=== PATIENT | female | born 1965 | race Asian ===

== ENCOUNTER 2023-12-07 10:53 | Emergency (ER) | payer MEDICAID ==
[~2023-12-07] VITALS: Ht 149.9 cm; Wt 63.8 kg
[~2023-12-07 10:53] MED LIST: ASPI81TA30 PO; ATEN50TA PO; ATOR10TA70 PO; FENO160T13 PO; FERR325T35 PO; HYDR-3965 PO; LORA10TA7 PO; LOSA100T58 PO; SERT100T PO; ZOLP5TAB8 PO; [UNRECOGNIZED DRUG - REMARK] EACHEYE
[2023-12-07 11:31] LABS: BASOPHILS # (AUTO) 0.1 X10'3 (0-0.2); BASOPHILS % (AUTO) 0.7 % (0-1); EOSINOPHILS % (AUTO) 0.4 % (0-6); HEMOGLOBIN 14.3 g/dl (12.0-16.0); LYMPHOCYTES # (AUTO) 2.6 X10'3 (1.1-4.8); MEAN CORPUSCULAR HEMOGLOBIN 28.9 PG (27.0-31.0); MEAN CORPUSCULAR HGB CONC 33.3 g/dL (33.0-36.5); MEAN CORPUSCULAR VOLUME 86.6 FL (78-98); MEAN PLATELET VOLUME 8.9 FL (7.4-10.4); MONOCYTES # (AUTO) 0.4 X10'3 (0-0.9); MONOCYTES % (AUTO) 3.6 % (2-12); NEUTROPHILS % (AUTO) 69.3 % (42-75); PLATELET COUNT 240 X10'3 (140-440); RED BLOOD COUNT 4.97 X10'6 (4.20-5.60); RED CELL DISTRIBUTION WIDTH 13.9 % (11.5-14.5); WHITE BLOOD COUNT 10.1 X10'3 (4.5-11.0)
[2023-12-07 11:47] LABS: ALBUMIN 3.8 G/DL (3.4-5.0); ANION GAP 12 (8-16); BLOOD UREA NITROGEN 17 MG/DL (7-18); BUN/CREATININE RATIO 16.5 (10.0-20.0); CALCIUM 9.3 MG/DL (8.5-10.1); CHLORIDE 101 MMOL/L (99-107); CREATININE 1.03 MG/DL (0.40-0.90); GLUCOSE 256 MG/DL (70-104); POTASSIUM 3.2 MMOL/L (3.5-5.1); PRO BRAIN NATRIURETIC PEPTIDE < 30 PG/ML (0-125); SODIUM 138 MMOL/L (135-145); TOTAL CARBON DIOXIDE 24.9 MMOL/L (24-32); eCRCL 41 ML/MIN; eGFR 55 ML/MIN
[2023-12-07] MEDS: normal saline 1000ml 1,000 ML IV ONE (13:00)
[2023-12-07] MEDS: potassium Cl 20 mEq SR tablet PO STA (13:00)
[2023-12-07 15:46] VITALS: BP 157/98; PULSE 73; RESP 16; TEMP 98.7; O2SAT 94
== END 2023-12-07 15:52 | disposition home or self-care (01) ==
LOC: ER 10:54
DX: E87.6 Hypokalemia (principal); E86.0 Dehydration; R55 Syncope and collapse; I10 Essential (primary) hypertension; E78.00 Pure hypercholesterolemia, unspecified; Z79.899 Other long term (current) drug therapy; Z79.2 Long term (current) use of antibiotics
CPT/HCPCS: 36415; 70450; 71045; 80048; 83880; 84484; 85025; 93005; 96360; 99285; J7030; 99284